=== PATIENT | male | born 2000 | race Caucasian/White ===

== ENCOUNTER 2022-01-23 17:05 | Emergency (ER) | payer OTHER ==
[2022-01-23 17:39] LABS: RED BLOOD COUNT 4.82 M/UL (4.20-5.50)
[2022-01-23 18:06] LABS: BUN/CREATININE RATIO 7 (0-10)
[2022-01-23] MEDS ORDERED: K-TAB ER20 MEQ PO (21:36)
[2022-01-23] MEDS ORDERED: ZOFRAN ODT 4 MG4 MG SL (21:36)
== END 2022-01-23 21:45 | disposition home or self-care (01) ==
LOC: EDBD 17:05 → ER1 17:05
PROVIDERS: Emergency Medicine; Physician Assistant
DX: E87.6 Hypokalemia (principal); Z20.822 Contact with and (suspected) exposure to COVID-19; F17.290 Nicotine dependence, other tobacco product, uncomplicated
CPT/HCPCS: 0240U; 80053; 80307; 81001; 83690; 83735; 85025; 96365; 96375; 99284; G0480; J2405; J2765; J3480